=== PATIENT | male | born 1985 | race Caucasian/White ===

== ENCOUNTER 2021-05-10 11:02 | Outpatient (CLI) | payer BC | END 2021-05-10 11:03 | disposition home or self-care (01) | LOC: SCSRAD 11:02 | PROVIDERS: ATTEND Physician Assistant | DX: U07.1 COVID-19 (principal); J12.82 Pneumonia due to coronavirus disease 2019 | CPT/HCPCS: 71046 ==

== ENCOUNTER 2022-09-17 08:31 | Outpatient (CLI) | payer BC | END 2022-09-17 08:32 | disposition home or self-care (01) | LOC: SCSRAD 08:31 | PROVIDERS: ATTEND Physician Assistant | DX: R07.9 Chest pain, unspecified (principal) | CPT/HCPCS: 71046 ==

== ENCOUNTER 2025-05-04 08:24 | Outpatient (CLI) | payer BC | END 2025-05-04 08:25 | disposition home or self-care (01) | LOC: SCSRAD 08:24 | PROVIDERS: ATTEND Physician Assistant | DX: S39.012A Strain of muscle, fascia and tendon of lower back, initial encounter (principal); M47.816 Spondylosis without myelopathy or radiculopathy, lumbar region | CPT/HCPCS: 72100 ==